=== PATIENT | male | born 1965 | race African-American/Black ===

== ENCOUNTER 2018-02-26 22:16 | Emergency (ER) | payer SELFPAY ==
--- NOTE | 2018-02-26 22:21 | ED.PDOC ---
History of Present Illness - General Chief Complaint: Chest Pain/IL Time Seen by Provider: 02/26/18 22:19 Source: patient Exam Limitations: clinical condition - History of Present Illness Timing/Duration: 1/2 hour Severity/Quality: severe, pressure Location: substernal Chest Pain Radiation: jaw Activities at Onset: none Prior Chest Pain/Cardiac Workup: heart attack - 2-3 yrs ago Improving Factors: nothing Worsening Factors: nothing Nitro Today/Relief: provided by EMS, no relief Aspirin Treatment Today: 325 mg x 1 Associated Symptoms: nausea/vomiting, shortness of breath Allergies/Adverse Reactions: Allergies NO KNOWN ALLERGY Allergy (Verified 02/26/18 22:28) Home Medications: Ambulatory Orders Aspirin [Aspirin Low Strength] 81 mg PO DAILY 02/26/18 Clopidogrel Bisulfate [Plavix] 75 mg PO QD 02/26/18 Isosorbide Mononitrate [Imdur] 30 mg PO DAILY 02/26/18 Lisinopril 10 mg PO DAILY 02/26/18 Review of Systems - Review of Systems Constitutional: States: no symptoms reported EENTM: States: no symptoms reported Respiratory: States: no symptoms reported Cardiology: States: see HPI, chest pain Gastrointestinal/Abdominal: States: nausea Genitourinary: States: no symptoms reported Musculoskeletal: States: no symptoms reported Skin: States: no symptoms reported Neurological: States: no symptoms reported Endocrine: States: no symptoms reported Hematologic/Lymphatic: States: no symptoms reported Family Medical History - Family History Mother Family History: Unknown Hx Cardiac Disease: Yes Physical Exam - Physical Exam General Appearance: Agitated, Anxious, Obvious distress Eyes, Ears, Nose, Throat Exam: PERRL/EOMI, normal ENT inspection Neck: non-tender, full range of motion Respiratory: chest non-tender, lungs clear, normal breath sounds Cardiovascular/Chest: normal peripheral pulses, regular rate, rhythm, no edema Peripheral Pulses: radial,right: 2+, radial,left: 2+ Gastrointestinal/Abdominal: normal bowel sounds, non tender, soft Extremity: normal range of motion, no pedal edema Neurologic: alert, normal mood/affect, oriented x 3 Skin Exam: normal color, warm/dry Lymphatic: no adenopathy Progress - EKG/XRAY/CT EKG: Sinus - NSR, no ST T wave changes - poor r wave progression anteriorly Comments: rate 81, MN 154, QRS, 94, QTc 439 XRAY: chest Xray Comments: no acute findings - Additional EKG/XRAY/Consults EKG #2: Sinus, no ST T wave changes - poor r wave progression anteriorly, Unchanged from - ekg done earlier tonight Comments: rate 78, MN 158, QRS 102, QTc 451 Departure - Departure Clinical Impression: Acute coronary syndrome Disposition: Transfer to Hospital Condition: Fair Departure Forms: ED Discharge - Pt. Copy, Patient Portal Self Enrollment Instructions: DI for Chest Pain Home Medications: Ambulatory Orders Aspirin [Aspirin Low Strength] 81 mg PO DAILY 02/26/18 Clopidogrel Bisulfate [Plavix] 75 mg PO QD 02/26/18 Isosorbide Mononitrate [Imdur] 30 mg PO DAILY 02/26/18 Lisinopril 10 mg PO DAILY 02/26/18 Critical Care Note - Critical Care Note Total Time (mins): 60 Comments: Critical care note: Event- Chest pain; Findings - Severe chest pain , normal Trop x 2, EKG's x 2 without acute changes, Hx of CAD and cardiac stents; Actions, Multiple doses of morphine to control pain, iv heparin and iv nitroglycerine, iv fluid bolus, made arrangments to transfer pt to [facility] where he lives Transfer to Outside Facility - Transfer Information Accepting Facility: [facility] [address] [place] accepting physician in ED Reason for Transfer: required specialist not available
[2018-02-26] MEDS ORDERED: MORPHINE SULFATE INJ 10 MG/ML VIAL IV ONE ×3 (22:24→23:41)
[2018-02-26] MEDS ORDERED: ONDANSETRON INJ 4 MG/2 ML VIAL IV ONE (22:24)
--- NOTE | 2018-02-26 22:56 | RAD ---
Examination: XR CHEST 1 VIEW dated 02/26/2018 10:26 PM CDT History: chest pain Comparison: None Technique: 1 view chest Findings: The lungs are clear bilaterally. No pneumothorax or pleural effusion. The cardiomediastinal silhouette is within normal limits. Impression: No acute disease. Electronically signed by: Benjamín Burnham MD 02/26/2018 10:55 PM CDT
[2018-02-26] MEDS ORDERED: ALUM & MAG HYDROX-SIMETHICONE 30 ML, LIDOCAINE VISCOUS 2% 15 ML PO ONE ×2 (23:07)
[2018-02-26] MEDS ORDERED: LIDOCAINE HCL 2% (MOUTH-THROAT) 15 ML UD ONE (23:20)
[2018-02-26] MEDS ORDERED: ALUM & MAG HYDROX-SIMETHICONE 30 ML UD ONE (23:20)
[2018-02-26] MEDS ORDERED: HEPARIN PREMIX 25,000 UNITS in PREMIX BAG 1 BAG IVS SCH (23:45)
[2018-02-26] MEDS ORDERED: HEPARIN SODIUM (PORCINE) 5,000 U/ML VIAL IV ONE (23:59)
[2018-02-27] MEDS ORDERED: NITROGLYCERIN/D5W IV 50,000 MCG in PREMIX BOTTLE 1 BOTTLE IVS SCH
[2018-02-27] MEDS ORDERED: HEPARIN PREMIX 500 ML ONE (00:06)
[2018-02-27] MEDS ORDERED: SODIUM CHLORIDE 0.9% 500ML 500 ML ONE (00:47)
[2018-02-27] MEDS ORDERED: SODIUM CHLORIDE 0.9% 500ML 500 ML IVS ONE ×2 (00:47→00:49)
[2018-02-27 00:56] VITALS: O2SAT 98
[2018-02-27 02:52] VITALS: BP 153/77; TEMP 97
== END 2018-02-27 02:45 | disposition left against medical advice (07) ==
LOC: ER 22:16
DX: I24.9 Acute ischemic heart disease, unspecified (principal); I25.2 Old myocardial infarction; I25.10 Atherosclerotic heart disease of native coronary artery without angina pectoris; Z79.82 Long term (current) use of aspirin; Z79.02 Long term (current) use of antithrombotics/antiplatelets; Z98.61 Coronary angioplasty status
CPT/HCPCS: 36415; 71045; 80053; 84484; 85025; 85379; 85610; 85730; 93005; J1644; J2060; J2270; J2405; J7040